=== PATIENT | female | born 1950 | race Caucasian/White ===

== ENCOUNTER 2021-01-10 08:15 | Day surgery (SDC) | payer MEDICARE ==
[~2021-01-10] VITALS: Ht 149.9 cm; Wt 64.8 kg
[2021-01-10] MEDS ORDERED: ACET-1131 PO (09:19)
[2021-01-10] MEDS ORDERED: ASPI81TA52 PO (09:19)
[2021-01-10] MEDS ORDERED: HYDR12.55 PO (09:19)
[2021-01-10] MEDS ORDERED: SIMV-42 PO (09:19)
[2021-01-10] MEDS ORDERED: ONDA8TAB13 PO (09:19)
[2021-01-10] MEDS ORDERED: LISI-642 PO (09:19)
[2021-01-10] MEDS ORDERED: FURO-149 PO (09:19)
[2021-01-10] MEDS ORDERED: CHOL200012 PO (09:19)
[2021-01-10] MEDS ORDERED: HYDR-3968 PO (09:19)
[2021-01-10] MEDS ORDERED: METO-539 PO (09:19)
[2021-01-10] MEDS ORDERED: RIVA20TA PO (09:19)
[2021-01-10] MEDS ORDERED: DIGO250T PO (09:19)
[2021-01-10 09:20] VITALS: BP 125/57
[2021-01-10] MEDS ORDERED: METO25TA6 PO (09:45)
[2021-01-10] MEDS ORDERED: AMIO200T61 PO (09:45)
[2021-01-10 09:46] LABS: BASOPHILS % (AUTO) 0.3 % (0-1); EOSINOPHILS % (AUTO) 0.2 % (0-6); HEMATOCRIT 46.4 % (35.0-45.0); HEMOGLOBIN 15.7 g/dl (12.0-16.0); LYMPHOCYTES # (AUTO) 0.9 X10'3 (1.1-4.8); LYMPHOCYTES % (AUTO) 7.9 % (21-51); MEAN CORPUSCULAR HEMOGLOBIN 28.7 PG (27.0-31.0); MEAN CORPUSCULAR HGB CONC 33.7 g/dL (33.0-36.5); MEAN CORPUSCULAR VOLUME 85.1 FL (78-98); MEAN PLATELET VOLUME 7.7 FL (7.4-10.4); MONOCYTES # (AUTO) 0.7 X10'3 (0-0.9); MONOCYTES % (AUTO) 6.1 % (2-12); NEUTROPHILS # (AUTO) 9.9 X10'3 (1.8-7.7); NEUTROPHILS % (AUTO) 85.5 % (42-75); PLATELET COUNT 320 X10'3 (140-440); RED BLOOD COUNT 5.46 X10'6 (4.20-5.60); RED CELL DISTRIBUTION WIDTH 13.7 % (11.5-14.5); WHITE BLOOD COUNT 11.6 X10'3 (4.5-11.0)
[2021-01-10] MEDS ORDERED: atropine 0.1mg/ml 10ml syringe IV ONE (09:55)
[2021-01-10] MEDS ORDERED: diphenhydrAMINE 25mg capsule PO ONE (09:55)
[2021-01-10] MEDS ORDERED: LORazepam 0.5 MG tablet PO ONE (09:55)
[2021-01-10] MEDS ORDERED: amiodarone 150mg/dext, iso-os 100 ML IV ONE (09:55)
[2021-01-10] MEDS ORDERED: MIDAZolam 1mg/ml 10ml vial IV ONE (09:55)
[2021-01-10] MEDS ORDERED: morphine 10mg/ml inj. IV ONE (09:55)
[2021-01-10] MEDS ORDERED: normal saline 1000ml 1,000 ML IV SCH (09:55)
[2021-01-10 10:04] LABS: ALBUMIN 4.2 G/DL (3.4-5.0); ANION GAP 13 (8-16); BLOOD UREA NITROGEN 11 MG/DL (7-18); CALCIUM 9.6 MG/DL (8.5-10.1); CHLORIDE 91 MMOL/L (99-107); GLUCOSE 129 MG/DL (70-104); SODIUM 135 MMOL/L (135-145); TOTAL CARBON DIOXIDE 31.3 MMOL/L (24-32); eGFR 55 ML/MIN
[2021-01-10 10:12] LABS: POTASSIUM 2.8 MMOL/L (3.5-5.1)
[2021-01-10] MEDS ORDERED: potassium Cl 20 mEq SR tablet PO STA (10:12)
[2021-01-10] MEDS ORDERED: POTASSIUM BICARB 20meq eff tab 20 MEQ TABLET.EFF PO STA (10:23)
== END 2021-01-10 11:00 | disposition home or self-care (01) ==
LOC: SSTAY O 08:15 → EDSTATUS 10:00 → SSTAY O 11:00
PROVIDERS: ATTEND Internal Medicine Cardiovascular Disease
DX: I48.19 Other persistent atrial fibrillation (principal); Z53.8 Procedure and treatment not carried out for other reasons; E78.5 Hyperlipidemia, unspecified; I11.0 Hypertensive heart disease with heart failure; I50.9 Heart failure, unspecified; I08.3 Combined rheumatic disorders of mitral, aortic and tricuspid valves; Z79.899 Other long term (current) drug therapy; Z80.1 Family history of malignant neoplasm of trachea, bronchus and lung
CPT/HCPCS: 36415; 80048; 85025; 93005; J7030

== ENCOUNTER 2021-03-21 13:57 | Outpatient (CLI) | payer MEDICARE ==
[~2021-03-21 13:57] MED LIST: ACET-1131 PO; AMIO200T61 PO; ASPI81TA52 PO; CHOL200012 PO; DIGO250T PO; FURO-149 PO; HYDR-3968 PO; HYDR12.55 PO; LISI-642 PO; LOP25T PO; METO-539 PO; ONDA8TAB13 PO; RIVA20TA PO; SIMV-42 PO
[2021-03-21 14:32] LABS: TOTAL HEMOGLOBIN 14.3 G/dl (12.0-16.0)
== END 2021-03-21 23:59 | disposition home or self-care (01) ==
LOC: RT 13:57
PROVIDERS: ATTEND Internal Medicine Cardiovascular Disease
DX: R06.02 Shortness of breath (principal); Z79.899 Other long term (current) drug therapy
CPT/HCPCS: 71046; 85018; 94010; 94727; 94729